=== PATIENT | female | born 1965 | race Caucasian/White ===

== ENCOUNTER 2024-02-06 11:26 | Emergency (ER) | payer MEDICAID, SELFPAY ==
--- NOTE | 2024-02-06 11:46 | PC.NURSE ---
PATIENT LEFT BEFORE TRIAGE, TOLD TRIAGE NURSE THAT HE WAS TAKING HER TO [facility]
== END 2024-02-06 12:34 | disposition left against medical advice (07) ==
LOC: SERX 11:39
PROVIDERS: Emergency Provider Emergency Medicine
DX: Z53.21 Procedure and treatment not carried out due to patient leaving prior to being seen by health care provider (principal)

== ENCOUNTER 2024-07-31 15:55 | Emergency (ER) | payer MEDICAID, SELFPAY ==
[2024-07-31 16:15] VITALS: BP 111/65; PULSE 106; RESP 18; TEMP 37.1; O2SAT 95
--- NOTE | 2024-07-31 16:22 | PD.EDADULT ---
ED General RME/HPI General Chief complaint: Shortness of Breath/Dyspnea Stated complaint: SOB Time Seen by Provider: 07/31/24 16:05 Source: patient Arrival date/time: 07/31/24 15:55 59-year-old female presents to the ED with complaint of 4-day history of cough with yellow sputum, shortness of breath, fever of 100 to 101 degrees, runny nose, nasal congestion, sinus pressure and drainage. She is complaining of right lower back pain and rib pain secondary to coughing. She denies nausea vomiting, diarrhea or abdominal pain. She presented to [facility] yesterday and was told she had nothing wrong. She has been using her inhaler 2-3 times daily. She denies smoking. Limitations: no limitations Related Data Home Medications ?Medication ?Instructions ?Recorded ?Confirmed albuterol sulfate 90 mcg/actuation 2 puff inhalation Q6HR PRN sob #0 03/15/17 03/28/19 aerosol inhaler (Proventil HFA) inhalations cyclobenzaprine 10 mg tablet 10 mg PO BID PRN Spasms #0 tabs 03/15/17 03/28/19 metformin 500 mg tablet 500 mg PO QDAY #0 tabs 03/15/17 03/28/19 (Glucophage) trazodone 100 mg tablet 100 mg PO HS #0 tabs 03/15/17 03/28/19 aspirin 81 mg tablet,delayed 81 mg PO QDAY 03/28/19 03/28/19 release gabapentin 600 mg tablet 600 mg PO BID 03/28/19 03/28/19 lidocaine 5 % topical ointment 1 applic topical QID PRN Pain 03/28/19 03/28/19 Previous Rx's ?Medication ?Instructions ?Recorded cyclobenzaprine 10 mg tablet 10 mg PO TID PRN muscle spasm #30 03/28/19 tabs naproxen 250 mg tablet 250 mg PO TID PRN pain #30 tabs 03/28/19 acetaminophen 300 mg-codeine 30 mg 1 tab PO Q8H PRN pain #10 tabs 05/14/19 tablet (Tylenol-Codeine #3) tramadol 50 mg tablet 50 mg PO Q6H PRN pain #20 tabs 11/05/20 benzonatate 100 mg capsule 100 mg PO TID PRN cough #15 caps 07/31/24 guaifenesin 600 mg tablet, 600 mg PO BID #10 tabs 07/31/24 extended release 12 hr (Mucinex) Allergies Allergy/AdvReac Type Severity Reaction Status Date / Time adhesive tape Allergy Severe PLASTIC Verified 08/19/18 12:40 TAPE / BLISTERS latex Allergy Intermediate Rash Verified 08/19/18 12:40 Sulfa (Sulfonamide Allergy Unknown Anaphylaxis Verified 08/19/18 12:40 Antibiotics) Review of Systems Review of Systems Systems Reviewed: All systems reviewed, normal except as documented Past Medical History Past Medical History NEUROLOGIC: Positive Migraine; Negative Neurological Disorders or Seizures CARDIAC: Negative Cardiac Disorders or Congestive Heart Failure RESPIRATORY: Positive Asthma, Pneumonia and Sleep Apnea; Negative Chronic Obstructive Pulmonary Disease (COPD) GASTROINTESTINAL: Positive Gastrointestinal Disorders and Gall Bladder Disease GENITOURINARY: Positive Kidney Stones; Negative Genitourinary Disorders or Renal Disease REPRODUCTIVE: Positive Previous Pregnancies; Negative Breast Cancer MUSCULOSKELETAL: Positive Musculoskeletal Disorders and Arthritis ENDOCRINE: Positive Diabetes Mellitus Type 2 and Hypothyroidism; Negative Diabetes Mellitus Type 1 HEMATOLOGIC: Negative Blood Disorders PSYCHO/SOCIAL: Positive Depression and Anxiety OTHER HISTORY: Positive Chicken Pox, Mumps and Clostridium Difficile; Negative Autoimmune Disease, Blood Transfusions, Blood Transfusion Reaction, Anesthesia Reactions, Cancer or Breast Cancer Family History FAMILY HISTORY: Positive Family Psychiatric Problems, Family Respiratory Disorders, Family Cardiac Disorders, Family Cancer and Family Surgery Surgical History SURGICAL: Positive Thyroidectomy, Tonsillectomy, Adenoidectomy, Lumpectomy and Tubal Ligation Social History SMOKING STATUS: Current some day smoker SUBSTANCE USE: methamphetamine (Intermittently x 29 years ) ED Exam Narrative Physical exam: VITAL SIGNS: Reviewed. GENERAL APPEARANCE: Alert and interactive, follows commands, no acute distress, well developed, nourished, appears well. HEAD AND FACE: Non-traumatic. ENT: PERRL, pink conjunctivitis, eyelid no trauma, anterior chamber clear. Pinnas intact and no signs of trauma or erythema. Tonsils, no exudates, no abscesses noted. Mucous membrane moist. NECK: Supple, nontender, no thyromegaly, no masses, no nuchal rigidity. CHEST: No tenderness, no crepitus, no paradoxical movement, no retractions. LUNGS: Wheezing noted. Diminished at the bases. Symmetric, no rales, no ronchi, no stridor. HEART: Regular rate, regular rhythm, no murmur, no gallops. VASCULAR: No peripheral edema. ABDOMEN: Soft, positive bowel sounds, nondistended, no guarding, nontender, no rebound, no masses NEUROLOGICAL: Gross motor function intact, sensory function intact, Appropriate for age. MUSCULOSKELETAL: Neck nontender, full range of motion. EXTREMITIES: Nontender, full range of motion. SKIN: Color pink, dry, good skin turgor, no rash, no lacerations, no abrasions, no contusions. LYMPHATICS: Deferred. General Limitations: Present no limitations Course Course Course Narrative: Vital signs blood pressure 111/65, pulse 107, respirations 18 and unlabored, temp 98.8, O2 sat 95% on room air. COVID and influenza A/B swabs are all negative. CBC reveals an elevated white count of 12.4 with normal H&H and platelets. Coags are normal. Lactic acid is normal at 0.9. Procalcitonin is normal at 0.07. Arterial blood gas reveals a pH of 7.46, [id number], PO2 119, bicarb 25, O2 sat 98% with base excess of 1. CMP reveals normal electrolytes with the exception of a glucose of 137, normal BUN and creatinine. Magnesium is normal at 1.7 LFTs are normal LDH is normal at 232, troponin is normal at less than 0.002, BNP is normal at less than 20. Urinalysis is negative for infection however there is 4+ glucose noted. UDS is positive for amphetamine. EKG reveals sinus arrhythmia at a rate of 103. XR chest reveals: Significant right middle lobe pneumonia. Patient was given DuoNeb treatment as well as Decadron 10 mg p.o. She was given a second DuoNeb treatment as well as ceftriaxone 2 g IV and azithromycin 500 mg p.o. prior to discharge. Symptoms, exam, and diagnostic studies are consistent with community-acquired pneumonia, asthma with exacerbation as well as amphetamine abuse. Patient was discharged home in stable and improved condition. She was advised to follow-up with her primary care physician in 24 to 48 hours. She was encouraged to return to the ED for any new or worsening symptoms. Quality Measures none Orders Category Date Time Status Bedside COVID-19 Antigen Test NOW Care 07/31/24 16:30 Completed Bedside Influenza A&B Antigen Test NOW Care 07/31/24 16:31 Completed EKG (ED ONLY) *Do not use* NOW Care 07/31/24 16:30 Completed IV [Insert IV] NOW Care 07/31/24 18:39 Completed EKG (ED Only) Stat Exams 07/31/24 16:30 Draft XR chest 2V Stat Exams 07/31/24 16:30 Completed ABG [Arterial Blood Gas] Stat Lab 07/31/24 16:54 Completed B-Type Natriuretic Peptide Stat Lab 07/31/24 16:53 Completed CBC Stat Lab 07/31/24 16:53 Completed CMP [Comprehensive Metabolic Panel] Stat Lab 07/31/24 16:53 Completed Drug Screen,Urine Stat Lab 07/31/24 18:27 Completed LDH (Lactate Dehydrogenase) Stat Lab 07/31/24 16:53 Completed Lactic Acid [Lactate (Lactic Acid)] Stat Lab 07/31/24 16:53 Completed Magnesium Stat Lab 07/31/24 16:53 Completed Partial Thromboplastin Time Stat Lab 07/31/24 16:53 Completed Procalcitonin Stat Lab 07/31/24 16:53 Completed Prothrombin Time with INR Stat Lab 07/31/24 16:53 Completed Troponin I Stat Lab 07/31/24 16:53 Completed Urinalysis Stat Lab 07/31/24 18:27 Completed Urine Culture Stat Lab 07/31/24 18:27 Completed Albuterol/Ipratr Rt Maylin [Duoneb Rt Maylin] Med 07/31/24 16:32 Discontinued 3 ml INH X1 ONE Albuterol/Ipratr Rt Maylin [Duoneb Rt Maylin] Med 07/31/24 19:36 Discontinued 3 ml INH X1 ONE Azithromycin Po [Zithromax PO] Med 07/31/24 18:03 Discontinued 500 mg PO X1 ONE cefTRIAXone [Rocephin] 2 gm Med 07/31/24 18:04 Discontinued SODIUM CHLORIDE 0.9% (Popper) [Ns 0.9% (P)] 50 ml IV X1 dexAMETHasone TAB [Decadron Tab] Med 07/31/24 18:02 Discontinued 10 mg PO X1 ONE Reevaluation(s) Reevaluation #1: She is still having some wheezing. Additional DuoNeb treatment ordered. Time: 19:30 Vital Signs Vital signs: Vital Signs Temperature 98.8 F 07/31/24 16:15 Pulse Rate 106 H 07/31/24 16:15 Respiratory Rate 18 07/31/24 16:15 Blood Pressure 111/65 07/31/24 16:15 Pulse Oximetry (%) 95 07/31/24 16:15 Oxygen Delivery Method Room Air 07/31/24 16:15 Discharge Plan Plan Patient Disposition: HOME (Self Care) Discharge Disposition comment: Stable and improved Prescriptions/Referrals Prescriptions/Med Rec: New benzonatate 100 mg capsule 100 mg PO TID PRN (Reason: cough) Qty: 15 0RF guaifenesin [Mucinex] 600 mg tablet extended release 12hr 600 mg PO BID Qty: 10 0RF No Action cyclobenzaprine 10 mg Tablet 10 mg PO BID PRN (Reason: Spasms) Qty: 0 metformin [Glucophage] 500 MG tablet 500 mg PO QDAY Qty: 0 trazodone 100 mg Tablet 100 mg PO HS Qty: 0 albuterol sulfate [Proventil HFA] 6.7 GM HFA aerosol inhaler 2 puff Inhalation Q6HR PRN (Reason: sob) Qty: 0 acetaminophen-codeine [Tylenol-Codeine #3] 300-30 mg tablet 1 tab PO Q8H PRN (Reason: pain) Qty: 10 0RF gabapentin 600 mg Tablet 600 mg PO BID aspirin 81 mg Tablet,Delayed Release (Dr/Ec) 81 mg PO QDAY lidocaine 5 % Ointment 1 applic topical QID PRN (Reason: Pain) cyclobenzaprine 10 mg tablet 10 mg PO TID PRN (Reason: muscle spasm) Qty: 30 0RF naproxen 250 mg tablet 250 mg PO TID PRN (Reason: pain) Qty: 30 0RF tramadol 50 mg tablet 50 mg PO Q6H PRN (Reason: pain) Qty: 20 0RF Referrals: No Primary/Family,Physician [Primary Care Provider] - In 1 week Problem List Clinical Impression: Community acquired pneumonia, Asthma with exacerbation, Amphetamine abuse Patient/Caregiver Discharge Instructions Education Materials: ED Asthma, Acute (Adult), ED Pneumonia (Adult) Additional Instructions: Take the antibiotics as prescribed and complete the course even though you may be feeling better. Take the Mucinex and Tessalon cough medication as prescribed. Follow-up with your primary care physician in 24 to 48 hours. Return to the ED for any new or worsening symptoms. Print Language: Nepalese Stand Alone Forms: Hallie Award Info., Patient Portal Info Letter PA/CRM FUNCTIONAL ANALYST Supervising Physician PA/CRM FUNCTIONAL ANALYST Supervising Physician: Dr. Jerome MDM Narrative MDM hospital course: 59-year-old female presents to the ED with complaint of 4-day history of cough with yellow sputum, shortness of breath, fever of 100 to 101 degrees, runny nose, nasal congestion, sinus pressure and drainage. She is complaining of right lower back pain and rib pain secondary to coughing. She denies nausea vomiting, diarrhea or abdominal pain. She presented to [facility] yesterday and was told she had nothing wrong. She has been using her inhaler 2-3 times daily. She denies smoking. Exam reveals an alert and oriented 59-year-old female, no acute distress. Cardiovascular irregularly irregular pulse, Wheezing noted. Diminished at the bases. Symmetric, no rales, no rhonchi, no stridor. Vital signs blood pressure 111/65, pulse 107, respirations 18 and unlabored, temp 98.8, O2 sat 95% on room air. COVID and influenza A/B swabs are all negative. CBC reveals an elevated white count of 12.4 with normal H&H and platelets. Coags are normal. Lactic acid is normal at 0.9. Procalcitonin is normal at 0.07. Arterial blood gas reveals a pH of 7.46, [id number], PO2 119, bicarb 25, O2 sat 98% with base excess of 1. CMP reveals normal electrolytes with the exception of a glucose of 137, normal BUN and creatinine. Magnesium is normal at 1.7 LFTs are normal LDH is normal at 232, troponin is normal at less than 0.002, BNP is normal at less than 20. Urinalysis is negative for infection however there is 4+ glucose noted. UDS is positive for amphetamine. EKG reveals sinus arrhythmia at a rate of 103. XR chest reveals: Significant right middle lobe pneumonia. Patient was given DuoNeb treatment as well as Decadron 10 mg p.o. She was given a second DuoNeb treatment as well as ceftriaxone 2 g IV and azithromycin 500 mg p.o. prior to discharge. Symptoms, exam, and diagnostic studies are consistent with community-acquired pneumonia, asthma with exacerbation as well as amphetamine abuse. Patient was discharged home in stable and improved condition. She was advised to follow-up with her primary care physician in 24 to 48 hours. She was encouraged to return to the ED for any new or worsening symptoms. Procedures done or offered: As noted above Clinical Information Provided by patient Medical Records Reviewed [facility] Meds/Rx Considered, not Ordered None Describe details: N/A Labs/Rad/Tests considered, not Ordered None Describe details: N/A Chronic Illness/Social Conditions which may negatively complicate care or outcome(s)-explain: other (Asthma) EKG EKG Interpretation narrative: Sinus arrhythmia at a rate of 103. Lab Interpretation Labs: interpreted by ct Lab(s) interpretation(s): As noted above Imaging Imaging interpretation: see narrative above Radiology reports / interpretation(s): As noted above Medication Administration(s) Medication Administration History Discontinued Medications Albuterol/Ipratropium (Albuterol/Ipratropium (Duoneb) Rt Maylin 3 Ml Nebu) 3 ml INH X1 ONE Stop: 07/31/24 16:33 Last Admin: 07/31/24 17:00 Dose: 3 ml Documented By: SITNIA Albuterol/Ipratropium (Albuterol/Ipratropium (Duoneb) Rt Maylin 3 Ml Nebu) 3 ml INH X1 ONE Stop: 07/31/24 19:37 Last Admin: 07/31/24 20:08 Dose: 3 ml Documented By: SUELLEN Azithromycin (Azithromycin 250 Mg Tablet) 500 mg PO X1 ONE Stop: 07/31/24 18:04 Last Admin: 07/31/24 18:34 Dose: 500 mg Documented By: JERROD Dexamethasone (Dexamethasone 4 Mg Tablet) 10 mg PO X1 ONE Stop: 07/31/24 18:03 Last Admin: 07/31/24 18:22 Dose: 10 mg Documented By: JERROD Ceftriaxone Sodium 2 gm/ (Sodium Chloride) 50 mls @ 100 mls/hr IV X1 ONE Stop: 07/31/24 18:33 Last Infusion: 07/31/24 19:20 Dose: Infused Documented By: Admin: 07/31/24 18:41 Dose: 100 mls/hr Documented By: JERROD As noted above Diagnosis Differential diagnosis: Bronchitis, COVID, influenza A/B, pneumonia, asthma exacerbation Differential dx and/or dx ruled out: COVID, influenza A/B Most likely dx, and/or detailed dx discussion: Pneumonia, asthma exacerbation, amphetamine abuse. Dispositon Disposition: Discharge Home
[2024-07-31 16:27] VITALS: PULSE 98; O2SAT 96; BMI 30.4
--- NOTE | 2024-07-31 16:30 | XR_ITS ---
Examination: PA and lateral chest 2 views TECHNIQUE: Upright PA and lateral chest 2 views Date and time: July 31, 2024 1709 hours Comparison September 04, 2017 INDICATION: Chest pain shortness of breath today. FINDINGS: Pneumonia in the right middle lobe Mild prominence left ventricle Mild vascular congestion The osseous structures are intact IMPRESSION: Significant right middle lobe pneumonia
--- NOTE | 2024-07-31 16:30 | EKG_ITS ---
[facility] Test Date: 2024-07-31 Pat Name: CHAMP CALROS Department: Room: - Gender: Female [employer]: : 1965 Requested By: Teodora Anguiano Order Number: [id number] Reading MD: Teodora Anguiano Measurements Intervals [place] Rate: 103 P: [place]: QRS: 58 QRSD: 85 T: 91 QT: 340 QTc: 445 Interpretive Statements ATRIAL FIBRILLATION WITH RAPID VENTRICULAR RESPONSE NONSPECIFIC T-WAVE ABNORMALITY ABNORMAL RHYTHM ECG No previous ECG available for comparison /store/S0/[id number]/ecg/[id number].pdf
--- NOTE | 2024-07-31 16:57 | PC.NURSE ---
Patient BIBA to the ED for c/o shortness of breath and right sided flank pain. Pt reported pain started off and on since july 20 after her son had given her a tight hug that caused her some discomfort. She felt sob symptoms for approx 1 week, she was seen in [facility] 07/29 for the same symptoms. She was discharged with no new treatment. On assessment patient has a dry cough, has to sit up to breath easier, she did mention that she smokes and lives with room mates that smoke and have been sick with the same cough. Oxygen level is >95%on RA, ST 101, afebrile. Pt's neuro assessment is GCS 15 and continuos to cough and states she wants to just go to sleep. At bed time patient wears CPAP machine for sleep apnea. Awaiting MD to evaluate patient, pt was updated on plan of care.
[2024-07-31 17:00] LABS: Lactate (Lactic Acid) 0.9 mMol/L (0.4-2.0)
[2024-07-31] MEDS: ALBUTEROL/IPRATROPIUM (Duoneb) RT SOL 3 ML NEBU INH ×2 (17:00→20:08)
[2024-07-31 17:03] VITALS: PULSE 93; RESP 18; O2SAT 99
[2024-07-31 17:03] LABS: Basophils % (Auto) 0 % (0-2.5); Eosinophils # (Auto) 0.1 Thou/mm3 (0.0-0.5); Eosinophils % (Auto) 0 % (0-10); Hemoglobin 12.4 g/dL (12.0-16.0); Immature Granulocytes % (Auto) 0 % (0-0); Immature Granulocytes Auto 0.04 Thou/mm3 (0.00-0.00); Lymphocytes # (Auto) 2.6 Thou/mm3 (1.0-4.8); Lymphocytes % (Auto) 21 % (10-50); Mean Corpuscular HGB Conc 33.5 g/dl (31.0-37.0); Mean Corpuscular Hemoglobin 28.6 pg (25.0-35.0); Mean Corpuscular Volume 86 fL (80-100); Monocytes # (Auto) 0.7 Thou/mm3 (0.0-0.8); Monocytes % (Auto) 5 % (0-12); Neutrophils % (Auto) 73 % (37-80); Nucleated Red Blood Cell % 0 /100 WBC (0); Platelet Count 241 Thou/mm3 (140-440); RDW Standard Deviation 43.9 fL (36.4-46.3); Red Blood Count 4.33 Miln/mm3 (4.00-5.20); White Blood Count 12.4 Thou/mm3 (3.6-11.0)
[2024-07-31 17:05] LABS: Base Excess 1 (-3-3); HCO3 25 mEq/L (20-26); Inspired Oxygen, FIO2 21 %; O2 Saturation 98 % (91-98); PCO2 35 mmHg (32.0-48.0); PO2 119 mmHg (83-108); pH, Arterial 7.46 (7.35-7.45)
[2024-07-31 17:06] LABS: Puncture Site Right Radial
[2024-07-31 17:07] LABS: Allen Test Performed/OK
[2024-07-31 17:16] LABS: Partial Thromboplastin Time 29.2 Seconds (22.0-36.0); Prothrombin Time 11.2 Seconds (9.0-12.2)
[2024-07-31 17:19] LABS: B-Type Natriuretic Peptide < 20 pg/mL (0-100)
--- NOTE | 2024-07-31 17:19 | PC.RT ---
ANILA sent to lab
[2024-07-31 17:27] LABS: Alanine Aminotransferase 19 U/L (10-49); Albumin, Serum 4.2 gm/dL (3.5-5.0); Albumin/Globulin Ratio 1.6 (1.2-2.2); Alkaline Phosphatase 107 U/L (46-116); Anion Gap 9 (7-16); Aspartate Amino Transferase 20 U/L (0-34); BUN/Creatinine Ratio 14 Ratio (12-20); Bilirubin,Total 0.8 mg/dL (0.3-1.2); Blood Urea Nitrogen 11 mg/dL (9-23); Calcium 8.6 mg/dL (8.3-10.6); Calcium (Corrected) 8.6 mg/dL (8.5-10.1); Carbon Dioxide 26.7 mMol/L (20.0-31.0); Chloride 105 mMol/L (98-107); Creatinine (Component) 0.8 mg/dL (0.6-1.3); Estimated Creatinine Clearance 74.9 mL/min (>60); Globulin 2.6 gm/dL (2.3-3.5); Glucose 137 mg/dL (74-106); LDH (Lactate Dehydrogenase) 232 U/L (120-246); Magnesium 1.7 mg/dL (1.6-2.6); Osmolality,Calculated 282 (275-295); Potassium 3.6 mMol/L (3.4-5.1); Procalcitonin 0.07 ng/ml (0.0-0.49); Sodium 141 mMol/L (136-145); Total Protein 6.8 gm/dL (5.7-8.2); Troponin I < 0.002 ng/mL (0.0-0.045); eGFR > 60 See Note
[2024-07-31 18:17] VITALS: BP 109/67; PULSE 105; RESP 20; TEMP 37.2; O2SAT 95
[2024-07-31] MEDS: dexAMETHasone 4 MG TABLET 10 MG PO (18:22)
[2024-07-31] MEDS: AZITHROMYCIN 250 MG TABLET 500 MG PO (18:34)
[2024-07-31 18:35] LABS: Collection Type, Urine Clean Catch; RBC,Urine 0 /hpf (0-3); WBC,Urine 0 /hpf (0-5)
[2024-07-31] MEDS: cefTRIAXone 2 GM in SODIUM CHLORIDE 0.9% (Popper) 50 ML IV (18:41)
[2024-07-31 19:08] LABS: Bacteria,Urine Rare; Bilirubin,Urine Negative (Negative); Blood,Urine Negative (Negative); Clarity,Urine Clear (Clear/Hazy); Color,Urine Lt-Yellow (Lt Yel-Yel); Glucose, Urine 4+ (Negative); Ketones,Urine Negative (Negative); Leukocyte Esterase,Urine Negative (Negative); Nitrite,Urine Negative (Negative); Protein,Urine Trace (Neg - Trace); Specific Gravity,Urine 1.034 (1.001-1.035); Squamous Epithelial Cell,Urine 1 /hpf (0-5); Urobilinogen,Urine Negative mg/dL (0.0-1.0)
[2024-07-31 19:10] LABS: Amphetamine/Methamp Scrn,U Positive (Negative); Barbiturate Screen,Urine Negative (Negative); Benzodiazepines Screen,Urine Negative (Negative); Benzoylecgonine Screen, Ur Negative (Negative); Fentanyl Screen,Urine Negative (Negative); Opiate Screen,Urine Negative (Negative); THC Screen,Urine Negative (Negative)
[2024-07-31 20:10] VITALS: PULSE 96; RESP 18; O2SAT 99
[2024-07-31 20:21] VITALS: PULSE 101; RESP 19; TEMP 37.2; O2SAT 98
== END 2024-07-31 20:22 | disposition home or self-care (01) ==
PROVIDERS: Physician Assistant; Emergency Provider Emergency Medicine
DX: J45.901 Unspecified asthma with (acute) exacerbation (principal); J18.9 Pneumonia, unspecified organism; F15.10 Other stimulant abuse, uncomplicated; I48.91 Unspecified atrial fibrillation
CPT/HCPCS: 36415; 36600; 71046; 80053; 80307; 81001; 82803; 83605; 83615; 83735; 83880; 84145; 84484; 85025; 85610; 85730; 87086; 87400; 87811; 93005; 94640; 96365; 99284; A9270; J0696; J7050; J8540

== ENCOUNTER 2024-10-22 00:24 | Emergency (ER) | payer MEDICAID, SELFPAY ==
[2024-10-22 00:25] VITALS: BMI 31.8
[2024-10-22 00:46] VITALS: BP 118/74; PULSE 74; RESP 20; TEMP 36.6; O2SAT 100
[2024-10-22] MEDS: KETOROLAC INJ 60 MG/2 ML VIAL 30 MG IM (02:30)
--- NOTE | 2024-10-22 03:13 | PD.EDBACK ---
ED Back Injury Pain RME/HPI General Chief Complaint: Back Pain/Injury Stated Complaint: BACK PAIN Time Seen by Provider: 10/22/24 02:16 Arrival date/time: 10/22/24 00:24 RME / HPI RME / HPI Narrative: 59-year-old female presents to the ED with a complaint of left lower back and hip pain. It hurts with movement. She has had a previous back injury and had chronic numbness/tingling to her feet. She denies any new injury. She denies any fever or chills, urinary frequency, dysuria, or hematuria. Related Data Home Medications ?Medication ?Instructions ?Recorded ?Confirmed albuterol sulfate 90 mcg/actuation 2 puff inhalation Q6HR PRN sob #0 03/15/17 03/28/19 aerosol inhaler (Proventil HFA) inhalations cyclobenzaprine 10 mg tablet 10 mg PO BID PRN Spasms #0 tabs 03/15/17 03/28/19 metformin 500 mg tablet 500 mg PO QDAY #0 tabs 03/15/17 03/28/19 (Glucophage) trazodone 100 mg tablet 100 mg PO HS #0 tabs 03/15/17 03/28/19 aspirin 81 mg tablet,delayed 81 mg PO QDAY 03/28/19 03/28/19 release gabapentin 600 mg tablet 600 mg PO BID 03/28/19 03/28/19 lidocaine 5 % topical ointment 1 applic topical QID PRN Pain 03/28/19 03/28/19 Previous Rx's ?Medication ?Instructions ?Recorded cyclobenzaprine 10 mg tablet 10 mg PO TID PRN muscle spasm #30 03/28/19 tabs naproxen 250 mg tablet 250 mg PO TID PRN pain #30 tabs 03/28/19 acetaminophen 300 mg-codeine 30 mg 1 tab PO Q8H PRN pain #10 tabs 05/14/19 tablet (Tylenol-Codeine #3) tramadol 50 mg tablet 50 mg PO Q6H PRN pain #20 tabs 11/05/20 benzonatate 100 mg capsule 100 mg PO TID PRN cough #15 caps 07/31/24 guaifenesin 600 mg tablet, 600 mg PO BID #10 tabs 07/31/24 extended release 12 hr (Mucinex) Allergies Allergy/AdvReac Type Severity Reaction Status Date / Time adhesive tape Allergy Severe PLASTIC Verified 10/22/24 00:24 TAPE / BLISTERS latex Allergy Intermediate Rash Verified 10/22/24 00:24 Sulfa (Sulfonamide Allergy Unknown Anaphylaxis Verified 10/22/24 00:24 Antibiotics) Review of Systems Review of Systems Systems Reviewed: All systems reviewed, normal except as documented Past Medical History Past Medical History NEUROLOGIC: Positive Migraine; Negative Neurological Disorders or Seizures CARDIAC: Negative Cardiac Disorders or Congestive Heart Failure RESPIRATORY: Positive Asthma, Pneumonia and Sleep Apnea; Negative Chronic Obstructive Pulmonary Disease (COPD) GASTROINTESTINAL: Positive Gastrointestinal Disorders and Gall Bladder Disease GENITOURINARY: Positive Kidney Stones; Negative Genitourinary Disorders or Renal Disease REPRODUCTIVE: Positive Previous Pregnancies; Negative Breast Cancer MUSCULOSKELETAL: Positive Musculoskeletal Disorders and Arthritis ENDOCRINE: Positive Diabetes Mellitus Type 2 and Hypothyroidism; Negative Diabetes Mellitus Type 1 HEMATOLOGIC: Negative Blood Disorders PSYCHO/SOCIAL: Positive Depression and Anxiety OTHER HISTORY: Positive Chicken Pox, Mumps and Clostridium Difficile; Negative Autoimmune Disease, Blood Transfusions, Blood Transfusion Reaction, Anesthesia Reactions, Cancer or Breast Cancer Family History FAMILY HISTORY: Positive Family Psychiatric Problems, Family Respiratory Disorders, Family Cardiac Disorders, Family Cancer and Family Surgery Surgical History SURGICAL: Positive Thyroidectomy, Tonsillectomy, Adenoidectomy, Lumpectomy and Tubal Ligation Social History SMOKING STATUS: Never smoker SUBSTANCE USE: methamphetamine (Intermittently x 29 years ) ED Exam Narrative Physical exam: Alert, afebrile and non-toxic appearing 59-year-old female, no acute distress. Lung are clear, RRR, Abdomen is soft, nontender. No CVA tenderness. Tender low back pain and left sciatic notch tenderness. Negative straight leg raise. Equal pedal push/pull. Normal DTRs. Moves all extremities well. Course Course Course Narrative: Patient was given Toradol 30 mg IM. Quality Measures none Orders Category Date Time Status Ketorolac Inj [Toradol Inj] Med 10/22/24 02:24 Discontinued 30 mg IM X1 ONE Vital Signs Vital signs: Vital Signs Temperature 97.9 F 10/22/24 00:46 Pulse Rate 74 10/22/24 00:46 Respiratory Rate 20 10/22/24 00:46 Blood Pressure 118/74 10/22/24 00:46 Pulse Oximetry (%) 100 10/22/24 00:46 Oxygen Delivery Method Room Air 10/22/24 00:46 Back Pain / Injury MDM Narrative MDM Narrative:: Symptoms, exam and diagnostic studies are consistent with: Acute exacerbation of chronic low back pain. Patient was discharged home in stable condition. Patient/family advised to follow-up with their PCP in 24-48 hours. Encouraged to return to the ED for any new or worsening symptoms. Patient data External records reviewed:: [facility] previous records Clinical information provided by:: patient Social determinants that could affect healthcare access:: substance use Patient has the following chronic illnesses:: Sciatica, chronic low back pain, history of renal calculi How is presenting disease/condition affected by chronic disease/condition?: exacerbated by Evaluation data The following diagnostics were reviewed and interpreted by me:: other (specify) (None) Lab and/or radiology exams considered but not ordered:: N/A Interpretation Summary: N/A Medications / Prescriptions Medications or Prescriptions considered but not ordered:: N/A Medication administrations:: Medication Administration History Discontinued Medications Ketorolac Tromethamine (Ketorolac Inj 60 Mg/2 Ml Vial) 30 mg IM X1 ONE Stop: 10/22/24 02:25 Last Admin: 10/22/24 02:30 Dose: 30 mg Documented By: CVL As noted above Consultations Consultation(s) initiated? (list below): No Diagnosis Differential diagnosis back pain/injury: lumbar radiculopathy, sciatica and strain of lumbar region Most likely diagnosis given after review of the tests above:: Acute exacerbation of chronic low back pain. Admission Indicated Admission indicated?: not indicated Explain why admission is indicated or not indicated:: Patient is stable for discharge Admission Request Was there a request for admission?: No Disposition Plan Disposition Plan: Discharge Discharge Attestation Discharge Attestation: The patient and all family members were given an opportunity to ask questions and understood the discharge instructions. Discharge instructions specifically effects, indications for sooner follow up or return to the emergency department, and the expected course of current diagnosis. Patient condition: Stable Discharge Plan Plan Patient Disposition: HOME (Self Care) Discharge Disposition comment: Stable Prescriptions/Referrals Prescriptions/Med Rec: No Action cyclobenzaprine 10 mg Tablet 10 mg PO BID PRN (Reason: Spasms) Qty: 0 metformin [Glucophage] 500 MG tablet 500 mg PO QDAY Qty: 0 trazodone 100 mg Tablet 100 mg PO HS Qty: 0 albuterol sulfate [Proventil HFA] 6.7 GM HFA aerosol inhaler 2 puff Inhalation Q6HR PRN (Reason: sob) Qty: 0 acetaminophen-codeine [Tylenol-Codeine #3] 300-30 mg tablet 1 tab PO Q8H PRN (Reason: pain) Qty: 10 0RF gabapentin 600 mg Tablet 600 mg PO BID aspirin 81 mg Tablet,Delayed Release (Dr/Ec) 81 mg PO QDAY lidocaine 5 % Ointment 1 applic topical QID PRN (Reason: Pain) cyclobenzaprine 10 mg tablet 10 mg PO TID PRN (Reason: muscle spasm) Qty: 30 0RF naproxen 250 mg tablet 250 mg PO TID PRN (Reason: pain) Qty: 30 0RF tramadol 50 mg tablet 50 mg PO Q6H PRN (Reason: pain) Qty: 20 0RF benzonatate 100 mg capsule 100 mg PO TID PRN (Reason: cough) Qty: 15 0RF guaifenesin [Mucinex] 600 mg tablet extended release 12hr 600 mg PO BID Qty: 10 0RF Problem List Clinical Impression: Low back pain Patient/Caregiver Discharge Instructions Education Materials: ED Back Pain (Acute or Chronic) Additional Instructions: Continue to use your previously prescribed Flexeril for spasms. Tylenol is also very helpful. Apply heat or ice to help with the pain. Follow-up with your primary care physician in 24 to 48 hours. Return to the ED for any new or worsening symptoms. Print Language: Cameroonian Stand Alone Forms: Hallie Award Info., Patient Portal Info Letter PA/COMPUTER SYSTEMS TECHNICIAN Supervising Physician PA/COMPUTER SYSTEMS TECHNICIAN Supervising Physician: Dr. Shi
[2024-10-22 03:48] VITALS: RESP 14
== END 2024-10-22 03:48 | disposition home or self-care (01) ==
LOC: SERX 05:33
PROVIDERS: Emergency Provider Emergency Medicine
DX: M54.50 Low back pain, unspecified (principal)
CPT/HCPCS: 96372; 99282; J1885

== ENCOUNTER → 2024-12-10 | Outpatient (CLI) | payer MEDICAID, SELFPAY ==
--- NOTE | 2024-12-10 17:05 | XR_ITS ---
Examination: Lumbar spine, 5 views Technique: Lumbar spine AP, lateral, coned lateral lower lumbar spine, bilateral obliques 5 views Exam date and time: December 10, 2024, 1725 hrs., Comparison April 06, 2020 Indications: Low back pain beginning 15 years ago Findings: Lumbar levoscoliosis 10 degrees Moderate osteopenia Moderate to advanced diffuse facet arthropathy Grade 1 anterolisthesis L3 on L4 Diffuse moderate to advanced lumbar degenerative disc disease, most severe at L4-L5 Impression: Diffuse moderate to advanced lumbar degenerative disc disease, most severe at L4-L5 with spinal stenosis
== END | disposition home or self-care (01) ==
PROVIDERS: PCP Physician Assistant; Referring Provider Physician Assistant; Visit Provider Physician Assistant
DX: M51.370 Other intervertebral disc degeneration, lumbosacral region with discogenic back pain only (principal); M51.360 Other intervertebral disc degeneration, lumbar region with discogenic back pain only
CPT/HCPCS: 72110